=== PATIENT | female | born 1960 | race Two or more races ===

== ENCOUNTER 2016-12-25 16:43 | Emergency (ER) | payer MEDICAID, OTHER ==
[~2016-12-25] VITALS: Ht 152.4 cm; Wt 62.1 kg
[2016-12-25] MEDS ORDERED: Solu-MEDROL 125mg Inj IVP ONE (17:15)
[2016-12-25] MEDS ORDERED: Famotidine 20 MG/ 2ML VIAL IVP ONE (17:15)
[2016-12-25] MEDS ORDERED: Morphine Sulfate 2mg/ml Inj IVP ONE (17:15)
--- NOTE | 2016-12-25 17:34 | Emergency Room Report ---
History of Present Illness General Chief Complaint: Gastrointestinal Bleed Source: Patient, Family Member Present Illness HPI The patient presents with passing dark burgundy stools for 6 days per rectum. She also has some mild right lower quadrant pain. She has a history of arthritis and Lupus and this is been out of control. She states that she's on prednisone but increased amount of she's taking. She's taken 10 mg as opposed to 5. She's also taking other medication for her lupus and arthritis. For the pain she's been taking Tylenol. She she denies any fevers. She has slight nausea. Pain reported at 10/10, more generalized, but also in abdomen - this is more sharp. No dysuria. The patient had colonoscopy 4 years ago. There was no mass at that time but she did have diverticulae. Joints sore and swollen (not more than baseline). She thinks she's had some renal involvement in the past. No LUDWIG or depression. Allergies: Coded Allergies: No Known Allergies (Unverified , 12/25/16) Patient History Past Medical History: see triage record Social History: Denies: smoking, alcohol use Social History Narrative with family Last Menstrual Period: 2007 Reviewed Nursing Documentation: PMH: Agreed, PSxH: Agreed Nursing Documentation-PMH Past Medical History: No History, Except For Review of Systems All Other Systems: negative except mentioned in HPI Physical Exam Vital Signs Date Time Temp Pulse Resp B/P (MAP) Pulse Ox O2 Delivery O2 Flow Rate FiO2 12/25/16 16:48 98.1 95 16 129/84 98 Room Air Sp02 EP Interpretation: reviewed, normal General Appearance: well appearing, no apparent distress, GCS 15 Head: normocephalic Eyes: bilateral eye normal inspection, bilateral eye PERRL ENT: moist mucus membranes Neck: supple Respiratory: lungs clear, normal breath sounds Cardiovascular #1: regular rate, rhythm Cardiovascular #2: 2+ radial (R) Gastrointestinal: normal inspection, normal bowel sounds, no mass, non- distended, no guarding, no rebound, tenderness - RLQ Rectal: heme positive stool - some kaylyn blood, hemorrhoids Musculoskeletal: back normal, gait/station normal, normal range of motion, other - MCP swelling with ulnar deviation Neurologic: alert, oriented x3, grossly normal Psychiatric: mood/affect normal Skin: normal inspection, warm/dry Medical Decision Making Diagnostic Impression: Primary Impression: Gastrointestinal hemorrhage Qualified Codes: K92.2 - Gastrointestinal hemorrhage, unspecified Additional Impression: Exacerbation of systemic lupus erythematosus ER Course Presents with rectal bleeding for 6 days. In addition to that her lipase is out of control. Differential includes diverticulosis, hemorrhoids, colonic mass , gastroenteritis amongst others. Evaluation will be with labs come EKG, chest x-ray and CT of the abdomen and pelvis with contrast. The patient will be treated with analgesia and methylprednisolone. We to see if she needs to be acutely transfused here. Her vital signs are stable and she does not appear pale. EKG is unremarkable. H/H low but not critical. WBC normal. Renal function good. CT with diverticula no diverticulitis. No periappendiceal inflammation. L adnexal cyst. L nephrolithiasis. Patient improved with treatment. No further bleeding in ED. Needs evaluation and further treatment. Discussed with Dr. Parikh. Accepted in transfer. Laboratory Tests Test 12/25/16 17:25 12/25/16 17:30 White Blood Count 4.6 K/UL (4.8-10.8) L Red Blood Count 3.94 M/UL (4.20-5.40) L Hemoglobin 12.0 G/DL (12.0-16.0) Hematocrit 35.6 % (37.0-47.0) L Mean Corpuscular Volume 90 FL (80-99) Mean Corpuscular Hemoglobin 30.4 PG (27.0-31.0) Mean Corpuscular Hemoglobin Concent 33.7 G/DL (32.0-36.0) Red Cell Distribution Width 14.4 % (11.6-14.8) Platelet Count 219 K/UL (150-450) Mean Platelet Volume 5.5 FL (6.5-10.1) L Neutrophils (%) (Auto) 61.0 % (45.0-75.0) Lymphocytes (%) (Auto) 28.3 % (20.0-45.0) Monocytes (%) (Auto) 8.3 % (1.0-10.0) Eosinophils (%) (Auto) 1.5 % (0.0-3.0) Basophils (%) (Auto) 1.0 % (0.0-2.0) Erythrocyte Sedimentation Rate Pending Prothrombin Time 9.4 SEC (9.30-11.50) Prothrombin Time INR 0.9 (0.9-1.1) PTT 23 SEC (23-33) Sodium Level 140 mEQ/L (135-145) Potassium Level 4.1 mEQ/L (3.4-4.9) Chloride Level 104 mEQ/L (98-107) Carbon Dioxide Level 25 mEQ/L (20-30) Anion Gap 11 (5-15) Blood Urea Nitrogen 14 mg/dL (7-23) Creatinine 0.8 mg/dL (0.5-0.9) Estimate Glomerular Filtration Rate > 60 mL/min (>60) Glucose Level 91 mg/dL (74-106) Calcium Level 9.9 mg/dL (8.6-10.2) Total Bilirubin 0.3 mg/dL (0.0-1.2) Aspartate Amino Transferase (AST) 20 U/L (5-40) Alanine Aminotransferase (ALT) 15 U/L (3-33) Alkaline Phosphatase 69 U/L (35-104) Troponin I < 0.30 ng/mL (<=0.30) Total Protein 6.5 g/dL (6.6-8.7) L Albumin 3.8 g/dL (3.5-5.2) Globulin 2.7 g/dL Albumin/Globulin Ratio 1.4 (1.0-2.7) Lipase 32 U/L (< 60) Urine Color Pale yellow Urine Appearance Clear Urine pH 6 (4.5-8.0) Urine Specific [place] 1.015 (1.005-1.035) Urine Protein Negative (NEGATIVE) Urine Glucose (UA) Negative (NEGATIVE) Urine Ketones Negative (NEGATIVE) Urine Occult Blood 3+ (NEGATIVE) H Urine Nitrite Negative (NEGATIVE) Urine Bilirubin Negative (NEGATIVE) Urine Urobilinogen Normal MG/DL (0.0-1.0) Urine Leukocyte Esterase 1+ (NEGATIVE) H Urine RBC 2-4 /HPF (0 - 2) H Urine WBC 0-2 /HPF (0 - 2) Urine Squamous Epithelial Cells Occasional /LPF Urine Bacteria Occasional /HPF (NONE) EKG Diagnostic Results Rate: normal Rhythm: NSR ST Segments: no acute changes Rhythm Strip Diag. Results EP Interpretation: yes Rhythm: NSR, no PVC's, no ectopy Chest X-Ray Diagnostic Results Chest X-Ray Diagnostic Results : Chest X-Ray Ordered: Yes # of Views/Limited/Complete: 1 View Indication: Chest Pain EP Interpretation: Yes Interpretation: no consolidation, no effusion, no pneumothorax, no acute cardiopulmonary disease Impression: No acute disease Interpreting ER Provider: Electronically signed by Sloan Selby MD Last Vital Signs Date Time Temp Pulse Resp B/P (MAP) Pulse Ox O2 Delivery O2 Flow Rate FiO2 12/25/16 21:02 98.2 82 22 128/59 97 Room Air Status: improved Disposition: XFER [facility] Condition: Serious - stable for transfer Sloan Selby M.D. Dec 25, 2016 17:34
[2016-12-25 17:49] LABS: EOSINOPHILS % (AUTO) 1.5 % (0.0-3.0); LYMPHOCYTES % (AUTO) 28.3 % (20.0-45.0); MEAN CORPUSCULAR HEMOGLOBIN 30.4 PG (27.0-31.0); MEAN CORPUSCULAR HGB CONC 33.7 G/DL (32.0-36.0); MEAN CORPUSCULAR VOLUME 90 FL (80-99); MEAN PLATELET VOLUME 5.5 FL (6.5-10.1); MONOCYTES % (AUTO) 8.3 % (1.0-10.0); PLATELET COUNT 219 K/UL (150-450); RED BLOOD COUNT 3.94 M/UL (4.20-5.40); RED CELL DISTRIBUTION WIDTH 14.4 % (11.6-14.8); WHITE BLOOD COUNT 4.6 K/UL (4.8-10.8)
[2016-12-25] MEDS ORDERED: MULTIVITAMINS1 EAC2 ORAL (17:55)
[2016-12-25] MEDS ORDERED: PREDNISONE10 MG ORAL (17:55)
[2016-12-25] MEDS ORDERED: VITAMIN D400 INTLU ORAL (17:55)
[2016-12-25] MEDS ORDERED: ARAVA20 M1 PO (17:55)
[2016-12-25 17:58] LABS: APPEARANCE,URINE CLEAR; KETONES,URINE NEGATIVE (NEGATIVE); LEUKOCYTE ESTERASE ,URINE 1+ (NEGATIVE); NITRITE,URINE NEGATIVE (NEGATIVE); PH,URINE 6 (4.5-8.0); PROTEIN,URINE NEGATIVE (NEGATIVE); UROBILINOGEN,URINE NORMAL MG/DL (0.0-1.0)
[2016-12-25 18:02] LABS: INR 0.9 (0.9-1.1); PROTHROMBIN TIME 9.4 SEC (9.30-11.50)
[2016-12-25 18:15] LABS: ALANINE AMINOTRANSFERASE 15 U/L (3-33); ALBUMIN/GLOBULIN RATIO 1.4 (1.0-2.7); ANION GAP 11 (5-15); ASPARTATE AMINO TRANSFERASE 20 U/L (5-40); CALCIUM 9.9 mg/dL (8.6-10.2); CARBON DIOXIDE 25 mEQ/L (20-30); CHLORIDE 104 mEQ/L (98-107); CREATININE 0.8 mg/dL (0.5-0.9); GLOMERULAR FILTRATION RATE > 60 mL/min (>60); HEMOLYSIS 7; LIPASE 32 U/L (< 60); POTASSIUM 4.1 mEQ/L (3.4-4.9); SODIUM 140 mEQ/L (135-145); TOTAL PROTEIN 6.5 g/dL (6.6-8.7); TROPONIN I < 0.30 ng/mL (<=0.30)
[2016-12-25 18:21] LABS: WBC,URINE 0-2 /HPF (0 - 2)
[2016-12-25 18:22] LABS: BACTERIA,URINE OCCASIONAL /HPF; SQUAMOUS EPITHELIAL CELL,UR OCCASIONAL /LPF (NONE/OCC)
[2016-12-25 18:34] VITALS: BP 141/76
[2016-12-25 18:54] LABS: ERYTHROCYTE SEDIMENTATION RATE 45 MM/HR (0-30)
[2016-12-25 20:38] VITALS: BP 128/59
[2016-12-25 21:02] VITALS: BP 128/59
--- NOTE | 2016-12-26 09:57 | Diagnostic Imaging Report ---
Indication: Abdominal pain Technique: Continuous helical transaxial imaging of the abdomen and pelvis was obtained from the lung bases to the pubic symphysis during intravenous contrast administration. Coronal 2-D reformats were also obtained. Study obtained in a Siemens sensation [address] Total Dose length Product (DLP): [address] Dose Index Volume (CTDIvol): 17 mGy Comparison: None Findings: There is mild posterior basilar atelectasis. The appendix is not identified but there are no secondary signs of acute appendicitis. Bilateral extrarenal pelvis configuration noted. Nonobstructive stone demonstrated in the left kidney measuring about 6 mm. The gallbladder is unremarkable. The liver and spleen and pancreas, both adrenal glands are unremarkable. No free fluid or free air identified. There is no evidence of bowel obstruction. Uterus is grossly unremarkable. In the left adnexa there is a partially calcified, partially cystic mass with rim enhancement measuring 2.8 x 3.8 cm. Few diverticula noted in the colon. Impression: 2.8 x 3.8 cm partially calcified mass in the left adnexa. Suggest further evaluation with ultrasound. This could be a calcified tumor or dermoid. Mild posterior basilar atelectasis. Nonobstructive stone in the left kidney. Diverticulosis of the colon The CT scanner at [facility] is accredited by the [employer] and the scans are performed using dose optimization techniques as appropriate to a performed exam including Automatic Exposure control.
--- NOTE | 2016-12-26 11:05 | Diagnostic Imaging Report ---
Indication: Dyspnea Comparison: None A single view chest radiograph was obtained. Findings: Cardiomediastinal appearance is within normal limits for age. Pulmonary vascularity is appropriate. The diaphragmatic contour is smooth and costophrenic angles are sharp. No pleural effusions are identified. The bones are osteopenic. Impression: No acute findings
== END 2016-12-25 21:07 | disposition short-term general hospital (02) ==
LOC: EMR 17:50
DX: K92.2 Gastrointestinal hemorrhage, unspecified (principal); M32.9 Systemic lupus erythematosus, unspecified; K57.30 Diverticulosis of large intestine without perforation or abscess without bleeding; N20.0 Calculus of kidney
CPT/HCPCS: 36415; 71010; 74177; 80053; 81003; 83690; 84484; 85025; 85610; 85651; 85730; 86850; 86900; 86901; 93005; 96374; 96375; 99285; J2270; J2405; J2930; Q9967; S0028

== ENCOUNTER 2017-02-12 08:03 | Emergency (ER) | payer MEDICAID, OTHER ==
[~2017-02-12] VITALS: Ht 154.9 cm; Wt 61.2 kg
[~2017-02-12 08:03] MED LIST: ARAVA20 M1 PO; MULTIVITAMINS1 EAC2 ORAL; PREDNISONE10 MG ORAL; VITAMIN D400 INTLU ORAL
[2017-02-12 08:20] VITALS: BP 133/53
[2017-02-12] MEDS ORDERED: SULFAMETHOXAZO480 ML ORAL (08:20)
[2017-02-12] MEDS ORDERED: Acetaminophen 500mg (ES) tab ORAL ONE (08:45)
[2017-02-12 08:58] LABS: APPEARANCE,URINE CLEAR; KETONES,URINE NEGATIVE (NEGATIVE); LEUKOCYTE ESTERASE ,URINE 1+ (NEGATIVE); MEAN CORPUSCULAR HEMOGLOBIN 29.2 PG (27.0-31.0); MEAN CORPUSCULAR HGB CONC 32.1 G/DL (32.0-36.0); MEAN CORPUSCULAR VOLUME 91 FL (80-99); MEAN PLATELET VOLUME 7.1 FL (6.5-10.1); NITRITE,URINE NEGATIVE (NEGATIVE); PH,URINE 7 (4.5-8.0); PLATELET COUNT 192 K/UL (150-450); PROTEIN,URINE NEGATIVE (NEGATIVE); RED BLOOD COUNT 4.51 M/UL (4.20-5.40); UROBILINOGEN,URINE NORMAL MG/DL (0.0-1.0); WHITE BLOOD COUNT 3.4 K/UL (4.8-10.8)
[2017-02-12 09:09] LABS: BACTERIA,URINE FEW /HPF; RBC,URINE 0-2 /HPF (0 - 2); SQUAMOUS EPITHELIAL CELL,UR FEW /LPF (NONE/OCC)
[2017-02-12 09:14] LABS: INR 0.9 (0.9-1.1); PROTHROMBIN TIME 9.4 SEC (9.30-11.50)
[2017-02-12 09:22] LABS: ALANINE AMINOTRANSFERASE 37 U/L (12-78); ALBUMIN/GLOBULIN RATIO 0.8 (1.0-2.7); ANION GAP 8 mmol/L (5-15); ASPARTATE AMINO TRANSFERASE 33 U/L (15-37); CALCIUM 10.2 MG/DL (8.5-10.1); CARBON DIOXIDE 23 MMOL/L (21-32); CHLORIDE 104 MMOL/L (98-107); CKMB 0.7 NG/ML (0.0-3.6); CREATININE 0.8 MG/DL (0.55-1.30); GLOMERULAR FILTRATION RATE > 60 mL/min (>60); POTASSIUM 4.2 MMOL/L (3.5-5.1); SODIUM 135 MMOL/L (136-145); TOTAL PROTEIN 7.8 G/DL (6.4-8.2)
[2017-02-12] MEDS ORDERED: Ketorolac 30mg Inj IV ONE (09:45)
--- NOTE | 2017-02-12 09:59 | Emergency Room Report ---
History of Present Illness General Chief Complaint: General Complaint Source: Patient, Family Member Present Illness HPI This patient has a history of lupus and rheumatoid arthritis. Around 3 AM this morning the patient developed bilateral low back pain. She states that the pain radiates to her mid back and upper thighs. She has had urinary frequency. She denies dysuria or hematuria. She denies nausea or vomiting. She states she has felt congested patient may have a sinus infection. She denies coughing. She is on prednisone 5 mg daily. She denies abdominal pain, chest pain, shortness of breath. She has no other complaints. Allergies: Coded Allergies: No Known Allergies (Unverified , 12/25/16) Patient History Past Medical History: see triage record, other - Lupus, RA Past Surgical History: none Social History: Denies: smoking, alcohol use, drug use Reviewed Nursing Documentation: PMH: Agreed, PSxH: Agreed Nursing Documentation-PMH Hx Gastrointestinal Problems: Yes - KIDNEY STONE Review of Systems All Other Systems: negative except mentioned in HPI Physical Exam Vital Signs Date Time Temp Pulse Resp B/P (MAP) Pulse Ox O2 Delivery O2 Flow Rate FiO2 02/12/17 08:09 100.6 89 20 153/91 99 Room Air Sp02 EP Interpretation: reviewed, normal General Appearance: no apparent distress, alert, GCS 15, non-toxic Head: normocephalic, atraumatic Eyes: bilateral eye normal inspection, bilateral eye PERRL ENT: hearing grossly normal, normal pharynx, no angioedema, normal voice Neck: full range of motion, supple/symm/no masses Respiratory: chest non-tender, lungs clear, normal breath sounds, speaking full sentences Cardiovascular #1: regular rate, rhythm, no edema Gastrointestinal: normal bowel sounds, non tender, soft, non-distended, no guarding, no rebound Rectal: deferred Genitourinary: CVA tenderness (R), CVA tenderness (L) Musculoskeletal: gait/station normal, normal range of motion, other - TTP along the bilateral paraspinal m. bilaterally. Neurologic: alert, oriented x3, responsive, motor strength/tone normal, sensory intact, speech normal Psychiatric: judgement/insight normal, memory normal, mood/affect normal, no suicidal/homicidal ideation Skin: normal color, no rash, warm/dry, well hydrated Medical Decision Making Diagnostic Impression: Primary Impression: Fever Additional Impression: Immunocompromised due to corticosteroids ER Course This patient presents with fever and body aches. I am unsure of the etiology of the fever. There is no evidence of urinary tract infection with a normal urinalysis. There is no evidence of pneumonia on chest x-ray. Likely this patient has a viral syndrome, possibly influenza. The patient states that she does have a history of recurrent sinusitis. Therefore, I did give the patient IV antibiotics. This patient will be admitted for further evaluation and treatment given the patient's immunocompromised state and fever. The patient's insurance company requested her transfer to the [facility]. She is stable for transfer and was transferred there for further evaluation and treatment. Laboratory Tests Test 02/12/17 08:31 02/12/17 08:45 White Blood Count 3.4 K/UL (4.8-10.8) L Red Blood Count 4.51 M/UL (4.20-5.40) Hemoglobin 13.2 G/DL (12.0-16.0) Hematocrit 41.0 % (37.0-47.0) Mean Corpuscular Volume 91 FL (80-99) Mean Corpuscular Hemoglobin 29.2 PG (27.0-31.0) Mean Corpuscular Hemoglobin Concent 32.1 G/DL (32.0-36.0) Red Cell Distribution Width 14.0 % (11.6-14.8) Platelet Count 192 K/UL (150-450) Mean Platelet Volume 7.1 FL (6.5-10.1) Neutrophils (%) (Auto) % (45.0-75.0) Lymphocytes (%) (Auto) % (20.0-45.0) Monocytes (%) (Auto) % (1.0-10.0) Eosinophils (%) (Auto) % (0.0-3.0) Basophils (%) (Auto) % (0.0-2.0) Neutrophils % (Manual) Pending Lymphocytes % (Manual) Pending Platelet Estimate Pending Platelet Morphology Pending Prothrombin Time 9.4 SEC (9.30-11.50) Prothrombin Time INR 0.9 (0.9-1.1) PTT 25 SEC (23-33) Urine Color Pale yellow Urine Appearance Clear Urine pH 7 (4.5-8.0) Urine Specific [place] 1.010 (1.005-1.035) Urine Protein Negative (NEGATIVE) Urine Glucose (UA) Negative (NEGATIVE) Urine Ketones Negative (NEGATIVE) Urine Occult Blood Negative (NEGATIVE) Urine Nitrite Negative (NEGATIVE) Urine Bilirubin Negative (NEGATIVE) Urine Urobilinogen Normal MG/DL (0.0-1.0) Urine Leukocyte Esterase 1+ (NEGATIVE) H Urine RBC 0-2 /HPF (0 - 2) Urine WBC 2-4 /HPF (0 - 2) Urine Squamous Epithelial Cells Few /LPF (NONE/OCC) Urine Bacteria Few /HPF (NONE) Sodium Level 135 MMOL/L (136-145) L Potassium Level 4.2 MMOL/L (3.5-5.1) Chloride Level 104 MMOL/L (98-107) Carbon Dioxide Level 23 MMOL/L (21-32) Anion Gap 8 mmol/L (5-15) Blood Urea Nitrogen 8 mg/dL (7-18) Creatinine 0.8 MG/DL (0.55-1.30) Estimate Glomerular Filtration Rate > 60 mL/min (>60) Glucose Level 98 MG/DL (74-106) Calcium Level 10.2 MG/DL (8.5-10.1) H Total Bilirubin 0.3 MG/DL (0.2-1.0) Aspartate Amino Transferase (AST) 33 U/L (15-37) Alanine Aminotransferase (ALT) 37 U/L (12-78) Alkaline Phosphatase 82 U/L (46-116) Total Creatine Kinase 34 U/L (26-308) Creatine Kinase MB 0.7 NG/ML (0.0-3.6) Creatine Kinase MB Relative Index 2.0 Total Protein 7.8 G/DL (6.4-8.2) Albumin 3.5 G/DL (3.4-5.0) Globulin 4.3 g/dL Albumin/Globulin Ratio 0.8 (1.0-2.7) L Lactic Acid Level 1.00 mmol/L (0.66-2.22) EKG Diagnostic Results Rate: normal Rhythm: NSR ST Segments: no acute changes Rhythm Strip Diag. Results EP Interpretation: yes Rate: 90's Rhythm: NSR, no PVC's, no ectopy Chest X-Ray Diagnostic Results Chest X-Ray Diagnostic Results : Chest X-Ray Ordered: Yes # of Views/Limited/Complete: 1 View Indication: Other - fever EP Interpretation: Yes Interpretation: no consolidation, no effusion, no pneumothorax, no acute cardiopulmonary disease Impression: No acute disease Electronically Signed by: Billy CT/MRI/US Diagnostic Results CT/MRI/US Diagnostic Results : Imaging Test Ordered: CT head Impression No acute findings. See official report. Last Vital Signs Date Time Temp Pulse Resp B/P (MAP) Pulse Ox O2 Delivery O2 Flow Rate FiO2 02/12/17 08:20 98.2 108 29 133/53 98 Room Air Disposition: XFER [facility] Condition: Stable Referrals: [facility],REFERRING (PCP) LIONEL GOMEZ D.O. Feb 12, 2017 09:59
[2017-02-12 10:39] LABS: BAND NEUTROPHILS % (MANUAL) 1 % (0-8); BASOPHILS % (MANUAL) 0 % (0-2); EOSINOPHILS % (MANUAL) 1 % (0-3); LYMPHOCYTES % (MANUAL) 14 % (20-45); NEUTROPHILS % (MANUAL) 81 % (45-75); PLATELET ESTIMATE ADEQUATE; PLATELET MORPHOLOGY NORMAL; TOTAL CELLS COUNTED 100
[2017-02-12 10:45] VITALS: BP 106/59
--- NOTE | 2017-02-12 10:45 | Diagnostic Imaging Report ---
Indication: Cough Technique: One view of the chest Comparison: none Findings: Lungs and pleural spaces are clear. Heart size is normal. Impression: No acute process
--- NOTE | 2017-02-12 12:19 | Diagnostic Imaging Report ---
Indication: Headache Technique: Continuous helical CT scanning of the head was performed without intravenous contrast material. Axial and coronal 5 mm sections were generated. Radiation dose was minimized using automated exposure control Dose: Total Dose Length Product - DLP [address] Dose Index - CTDIvol(s) 70.38 mGy. Comparison: Findings: The ventricular system is normal in size and configuration. There is no shift of midline structures. No abnormal extra-axial fluid collections are noted. There is no evidence of intracerebral bleeding. No other abnormal high or low density areas are noted within the brain. Intact calvarium. Visualized orbits and sinuses are unremarkable. Impression: Normal CT scan of the head without contrast material. The CT scanner at [facility] [place] is accredited by the [employer] and the scans are performed using protocols designed to limit radiation exposure to as low as reasonably achievable to attain images of sufficient resolution adequate for diagnostic evaluation. Noncontrast
[2017-02-12 13:00] VITALS: BP 109/76
[2017-02-12 14:51] VITALS: BP 120/80
--- NOTE | 2017-02-17 12:17 | Cardiology Report ---
APPROVED REPORT EKG Measurement Heart [id number] Normal sinus rhythm Possible Left atrial enlargement Borderline ECG
== END 2017-02-12 14:55 | disposition short-term general hospital (02) ==
LOC: EMR 08:38 → EDBEDREQ 13:40 → EMR 14:55
DX: R50.9 Fever, unspecified (principal); T45.1X5A Adverse effect of antineoplastic and immunosuppressive drugs, initial encounter; Z79.52 Long term (current) use of systemic steroids; M54.5 Low back pain; R35.0 Frequency of micturition; Z87.442 Personal history of urinary calculi; M32.9 Systemic lupus erythematosus, unspecified; M06.9 Rheumatoid arthritis, unspecified
CPT/HCPCS: 36415; 70450; 71010; 80053; 81003; 82550; 82553; 83605; 85007; 85025; 85610; 85730; 87040; 93005; 96361; 96374; 99285; J1885

== ENCOUNTER 2017-04-05 12:19 | Emergency (ER) | payer MEDICAID ==
[~2017-04-05] VITALS: Ht 152.4 cm; Wt 63.5 kg
[~2017-04-05 12:19] MED LIST changes: +SULFAMETHOXAZO480 ML ORAL
[2017-04-05] MEDS ORDERED: TYLENOL EXTRA500 MG ORAL (12:48)
[2017-04-05] MEDS ORDERED: PROMETHAZINE-C118 M1 ORAL (12:58)
[2017-04-05] MEDS ORDERED: FLONASE ALLERG9.9 ML NS (12:58)
[2017-04-05] MEDS ORDERED: NAPROXEN500 M2 ORAL (12:58)
[2017-04-05] MEDS ORDERED: SUDAFED 12 HOU120 M1 PO (12:58)
[2017-04-05 13:05] VITALS: BP 15/72
--- NOTE | 2017-04-05 14:22 | Emergency Room Report ---
History of Present Illness General Chief Complaint: Upper Respiratory Illness Source: Patient Present Illness [facility] The patient is a 43-year-old female presenting for nasal congestion, facial pain , and headache for the past 3 weeks. She states that she has had sinus infections in the past and this feels the same. Pain is an 8/10 dull ache primarily to the face. Does not radiate. Worse with head movement. She denies any fever or chills. She denies other symptoms including nausea, vomiting, rash, neck pain or stiffness, dizziness, blurred vision, SOB, CP Allergies: Coded Allergies: No Known Allergies (Unverified , 12/25/16) Patient History Past Medical History: see triage record Pertinent Family History: none Last Menstrual Period: Post Reviewed Nursing Documentation: PMH: Agreed, PSxH: Agreed Review of Systems All Other Systems: negative except mentioned in HPI Physical Exam Vital Signs Date Time Temp Pulse Resp B/P (MAP) Pulse Ox O2 Delivery O2 Flow Rate FiO2 04/05/17 12:41 99.0 105 20 118/63 98 Room Air Sp02 EP Interpretation: reviewed, normal General Appearance: no apparent distress, alert, GCS 15, non-toxic Head: normocephalic, atraumatic Eyes: bilateral eye normal inspection, bilateral eye PERRL ENT: normal pharynx, uvula midline, nasal congestion, other - TTP over bilat maxillary sinuses Neck: full range of motion, supple/symm/no masses Respiratory: chest non-tender, lungs clear, normal breath sounds, speaking full sentences Cardiovascular #1: regular rate, rhythm, no edema Gastrointestinal: normal bowel sounds, non tender, soft, non-distended, no guarding, no rebound Musculoskeletal: back normal, gait/station normal, normal range of motion, non- tender Neurologic: alert, oriented x3, responsive, motor strength/tone normal, sensory intact, speech normal Psychiatric: judgement/insight normal, memory normal, mood/affect normal, no suicidal/homicidal ideation Skin: normal color, no rash, warm/dry, well hydrated Lymphatic: no adenopathy Medical Decision Making PA Attestation Dr. Selby is my supervising physician. Patient management was discussed with my supervising physician Diagnostic Impression: Primary Impression: Sinusitis, acute Qualified Codes: J01.00 - Acute maxillary sinusitis, unspecified ER Course The patient is a 56-year-old female presenting for nasal congestion and facial pain Differential diagnoses considered but not limited to: Acute sinusitis, pharyngitis, rhinitis, bronchitis Physical exam: Febrile. No apparent distress HEENT exam reveals tenderness to palpation over bilateral maxillary sinuses with nasal congestion. Otherwise unremarkable Lungs CTA bilat The patient will be discharged home with a prescription for Sudafed, Flonase, and cough medication. She will follow up with her primary doctor Last Vital Signs Date Time Temp Pulse Resp B/P (MAP) Pulse Ox O2 Delivery O2 Flow Rate FiO2 04/05/17 13:05 99.0 79 17 115/72 98 Room Air Status: improved Disposition: HOME, SELF-CARE Condition: Improved Scripts Codeine/Promethazine Hcl* (PROMETHAZINE-CODEINE SYRUP*) 118 Ml Syrup 5 ML ORAL Q6H Y for For Cough, #118 ML 0 Refills Prov: FILOMENA STARK P.A. 04/05/17 Pseudoephedrine Hcl (SUDAFED 12 HOUR) 120 Mg Tablet.er 120 MG PO Q12HR, #30 TAB Prov: FILOMENA STARK P.A. 04/05/17 Fluticasone Propionate (Flonase Allergy Relief) 9.9 Ml [place].susp 1 SPRAYS NS DAILY, #10 ML Prov: FILOMENA STARK P.A. 04/05/17 Naproxen* (NAPROXEN*) 500 Mg Tablet 500 MG ORAL TWICE A WEEK, #30 TAB 0 Refills Prov: TERBHARATHIANFILOMENA P.A. 04/05/17 Referrals: [facility],REFERRING (PCP) Patient Instructions: Sinusitis, Adult Additional Instructions: I discussed my findings with the patient. All questions and concerns have been answered. Treatment and medication compliance have been addressed. I advised the patient that they need to follow up with PMD in 3-5 days. Return to ED if pain remains or worsens, cough worsens or remains, you notice blood in your sputum, you notice wheezing, you experience a fever, or if needed for any reason. Patient verbalized understanding of discharge instructions. FILOMENA STARK Apr 05, 2017 14:22
== END 2017-04-05 13:05 | disposition home or self-care (01) ==
LOC: EMR 13:00
DX: J01.90 Acute sinusitis, unspecified (principal); J33.9 Nasal polyp, unspecified
CPT/HCPCS: 99284